=== PATIENT | male | born 1995 | race Caucasian/White ===

== ENCOUNTER 2022-02-24 04:53 | Emergency (ER) | payer MEDICAID ==
[~2022-02-24] VITALS: Ht 180.3 cm; Wt 59.1 kg
[2022-02-24] MEDS ORDERED: proCHLORperazine 10 MG/2 ml inj IM ONE (05:40)
[2022-02-24] MEDS ORDERED: oxyCODONE IR 5mg (immed. release) tablet PO ONE (05:40)
[2022-02-24] MEDS ORDERED: CLIN150C8 PO (05:40)
[2022-02-24 06:10] VITALS: BP 138/89
== END 2022-02-24 06:12 | disposition home or self-care (01) ==
LOC: ER 04:54
DX: K08.89 Other specified disorders of teeth and supporting structures (principal); R51.9 Headache, unspecified; Z79.2 Long term (current) use of antibiotics
CPT/HCPCS: 96372; 99283; J0780